=== PATIENT | female | born 1990 | race Caucasian/White ===

== ENCOUNTER → 2016-08-22 | Outpatient (CLI) | payer BC ==
[2016-08-22 08:10] LABS: Albumin 4.1 g/dL (3.4-5.0); BUN/Creatinine Ratio 21.5; Calcium 8.8 mg/dL (8.5-10.1); Total Protein 7.7 g/dL (6.4-8.2)
== END | disposition home or self-care (01) ==
LOC: LAB 07:17
PROVIDERS: ATTEND Physician Assistant
DX: E78.4 Other hyperlipidemia (principal)
CPT/HCPCS: 36415; 80053; 80061

== ENCOUNTER → 2017-09-11 | Outpatient (CLI) | payer BC | END | disposition home or self-care (01) | LOC: LAB 10:00 | PROVIDERS: ATTEND Physician Assistant | DX: D23.9 Other benign neoplasm of skin, unspecified (principal); E78.4 Other hyperlipidemia ==

== ENCOUNTER → 2017-12-12 | Outpatient (CLI) | payer BC ==
[2017-12-12 09:11] LABS: Basophils # (auto) 0 uL; Basophils % (auto) 0.7 % (0.0-2.0); Eosinophils # (auto) 0 uL; Eosinophils % (auto) 0.2 % (0.0-7.0); Hematocrit 42.2 % (36.0-46.0); Hemoglobin 14.5 g/dL (12.2-16.2); Lymphocytes # (auto) 1.2 uL; Lymphocytes % (auto) 20.1 % (10.0-50.0); Mean Corpuscular Hemoglobin 31.9 pg (28.0-32.0); Mean Corpuscular Hgb Conc. 34.3 g/dL (32.0-36.0); Mean Corpuscular Volume 92.9 fL (80.0-100.0); Monocytes # (auto) 0.3 uL; Monocytes % (auto) 5.5 % (0.0-12.0); Neutrophils # (auto) 4.5 uL; Neutrophils % (auto) 73.5 % (37.0-80.0); Nucleated Red Blood Cells % 0.1 %; Platelet Count (auto) 329 10^3/uL (140-450); Red Blood Cells 4.55 10^6/uL (4.0-5.20); Red Cell Distribution Width 12.8 % (11.8-14.3); White Blood Cell 6.1 10^3/uL (4.4-10.8)
[2017-12-12 09:44] LABS: Albumin 4.4 g/dL (3.4-5.0); BUN/Creatinine Ratio 20.2; Bilirubin, Total 1.1 mg/dL (0.2-1.0); Calcium 9.6 mg/dL (8.5-10.1); Total Protein 8.4 g/dL (6.4-8.2)
== END | disposition home or self-care (01) ==
LOC: LAB 08:07
PROVIDERS: ATTEND Physician Assistant
DX: E78.4 Other hyperlipidemia (principal); G44.209 Tension-type headache, unspecified, not intractable; N94.6 Dysmenorrhea, unspecified
CPT/HCPCS: 36415; 80053; 80061; 85025

== ENCOUNTER → 2019-12-27 | Outpatient (CLI) | payer BC ==
[2019-12-27 08:44] LABS: Basophils # (auto) 0 10 ^3/uL (0-0.2); Eosinophils # (auto) 0.1 10 ^3/uL (0-0.8); Monocytes # (auto) 0.3 10 ^3/uL (0-1.3); Neutrophils # (auto) 2.6 10 ^3/uL (1.6-8.6)
[2019-12-27 08:47] LABS: Basophils % (auto) 0.7 % (0.0-2.0); Eosinophils % (auto) 1.5 % (0.0-7.0); Hematocrit 41.8 % (36.0-46.0); Hemoglobin 14.1 g/dL (12.2-16.2); Lymphocytes # (auto) 1.5 10 ^3/uL (0.4-5.4); Lymphocytes % (auto) 33.1 % (10.0-50.0); Mean Corpuscular Hgb Conc. 33.8 g/dL (32.0-36.0); Mean Corpuscular Volume 91.7 fL (80.0-100.0); Monocytes % (auto) 7.5 % (0.0-12.0); Neutrophils % (auto) 57.2 % (37.0-80.0); Nucleated Red Blood Cells % 0.2 %; Platelet Count (auto) 329 10^3/uL (140-450); Red Blood Cells 4.56 10^6/uL (4.0-5.20); White Blood Cell 4.6 10^3/uL (4.4-10.8)
[2019-12-27 09:17] LABS: Albumin 4.1 g/dL (3.4-5.0); Calcium 9.2 mg/dL (8.5-10.1); Potassium 3.7 mmol/L (3.5-5.1)
[2019-12-27 09:22] LABS: BUN/Creatinine Ratio 20.5; Bilirubin, Total 0.6 mg/dL (0.2-1.0); Total Protein 7.8 g/dL (6.4-8.2)
== END | disposition home or self-care (01) ==
LOC: LAB 08:05
PROVIDERS: ATTEND Physician Assistant
DX: E78.49 Other hyperlipidemia (principal); N94.6 Dysmenorrhea, unspecified; Z30.41 Encounter for surveillance of contraceptive pills
CPT/HCPCS: 36415; 80053; 80061; 85025

== ENCOUNTER → 2020-05-22 | Outpatient (CLI) | payer BC ==
[2020-05-22 09:05] LABS: Cholesterol 187 mg/dL (< 200)
[2020-05-22 09:08] LABS: HDL Cholesterol 68 mg/dL (40-59); LDL Cholesterol 106 mg/dL (< 100); Triglycerides 56 mg/dL (< 150)
== END | disposition home or self-care (01) ==
LOC: LAB 08:07
PROVIDERS: ATTEND Physician Assistant
DX: E78.49 Other hyperlipidemia (principal)
CPT/HCPCS: 36415; 80061

== ENCOUNTER → 2021-12-29 | Outpatient (CLI) | payer BC ==
[2021-12-29 07:32] LABS: Basophils # (auto) 0 10 ^3/uL (0-0.2); Basophils % (auto) 0.7 % (0.0-2.0); Eosinophils # (auto) 0 10 ^3/uL (0-0.8); Eosinophils % (auto) 1.2 % (0.0-7.0); Hematocrit 41.2 % (36.0-46.0); Hemoglobin 13.7 g/dL (12.2-16.2); Lymphocytes # (auto) 1.1 10 ^3/uL (0.4-5.4); Lymphocytes % (auto) 29.9 % (10.0-50.0); Mean Corpuscular Hemoglobin 30.4 pg (28.0-32.0); Mean Corpuscular Hgb Conc. 33.3 g/dL (32.0-36.0); Mean Corpuscular Volume 91.2 fL (80.0-100.0); Monocytes # (auto) 0.3 10 ^3/uL (0-1.3); Neutrophils # (auto) 2.3 10 ^3/uL (1.6-8.6); Neutrophils % (auto) 60.2 % (37.0-80.0); Red Blood Cells 4.52 10^6/uL (4.0-5.20); White Blood Cell 3.8 10^3/uL (4.4-10.8)
[2021-12-29 08:11] LABS: Albumin 3.9 g/dL (3.4-5.0); Calcium 9.1 mg/dL (8.5-10.1); Potassium 4.2 mmol/L (3.5-5.1)
[2021-12-29 08:17] LABS: BUN/Creatinine Ratio 16.5; Bilirubin, Total 0.9 mg/dL (0.2-1.0); Total Protein 7.3 g/dL (6.4-8.2)
== END | disposition home or self-care (01) ==
LOC: LAB 07:09
PROVIDERS: ATTEND Nurse Practitioner Family
DX: Z00.00 Encounter for general adult medical examination without abnormal findings (principal); E78.49 Other hyperlipidemia; G25.81 Restless legs syndrome
CPT/HCPCS: 36415; 80053; 80061; 82306; 82607; 85025

== ENCOUNTER → 2022-12-01 | Outpatient (CLI) | payer BC ==
[2022-12-01 07:34] LABS: Basophils # (auto) 0 10 ^3/uL (0-0.2); Basophils % (auto) 0.9 % (0.0-2.0); Eosinophils # (auto) 0.1 10 ^3/uL (0-0.8); Eosinophils % (auto) 2.4 % (0.0-7.0); Hematocrit 42.2 % (36.0-46.0); Hemoglobin 14.3 g/dL (12.2-16.2); Lymphocytes # (auto) 1.6 10 ^3/uL (0.4-5.4); Lymphocytes % (auto) 37.5 % (10.0-50.0); Mean Corpuscular Hemoglobin 31.3 pg (28.0-32.0); Mean Corpuscular Hgb Conc. 33.9 g/dL (32.0-36.0); Mean Corpuscular Volume 92.3 fL (80.0-100.0); Monocytes # (auto) 0.4 10 ^3/uL (0-1.3); Monocytes % (auto) 9.4 % (0.0-12.0); Neutrophils # (auto) 2.1 10 ^3/uL (1.6-8.6); Neutrophils % (auto) 49.8 % (37.0-80.0); Red Blood Cells 4.57 10^6/uL (4.0-5.20); Red Cell Distribution Width 13.2 % (11.8-14.3); White Blood Cell 4.2 10^3/uL (4.4-10.8)
[2022-12-01 08:23] LABS: Alanine Aminotransferase 14 U/L (7-40); Alkaline Phosphatase 51 U/L (46-116); Anion Gap 9.8 (5-15); Blood Urea Nitrogen 10 mg/dL (9-23); Calcium 9.9 mg/dL (8.5-10.1); Carbon Dioxide 23.2 mmol/L (20-30); Chloride 105 mmol/L (98-107); Glucose 103 mg/dL (74-106); Potassium 4.1 mmol/L (3.5-5.1); Sodium 138 mmol/L (136-145); Triglycerides 61 mg/dL (< 150)
[2022-12-01 08:24] LABS: Albumin 4.8 g/dL (3.2-4.8); LDL Cholesterol 121 mg/dL (< 100)
[2022-12-01 08:25] LABS: Aspartate Aminotransferase 13 U/L (13-40); Bilirubin, Total 1.2 mg/dL (0.2-1.0); Cholesterol 189 mg/dL (< 200); HDL Cholesterol 59 mg/dL (40-59); Total Protein 7.7 g/dL (5.7-8.2)
== END | disposition home or self-care (01) ==
LOC: LAB 07:04
PROVIDERS: ATTEND Nurse Practitioner Family
DX: E55.9 Vitamin D deficiency, unspecified (principal); E78.49 Other hyperlipidemia
CPT/HCPCS: 36415; 80053; 80061; 82306; 85025

== ENCOUNTER → 2023-06-18 | Outpatient (CLI) | payer BC ==
[2023-06-18 06:49] LABS: Urine Bacteria NONE SEEN /hpf (None Seen); Urine Blood TRACE /uL (Negative); Urine Clarity Clear (Clear); Urine Protein, UAD Negative (Negative); Urine Urobilinogen Normal (Negative); Urine WBC 5 /hpf (0 - 5); Urine pH 5.5 (5.0-8.0)
[2023-06-18 06:51] LABS: Urine Color Straw (Yellow)
[2023-06-18 06:57] LABS: Basophils # (auto) 0 10 ^3/uL (0-0.2); Basophils % (auto) 0.7 % (0.0-2.0); Eosinophils # (auto) 0.2 10 ^3/uL (0-0.8); Eosinophils % (auto) 2.7 % (0.0-7.0); Hematocrit 43.4 % (36.0-46.0); Hemoglobin 14.4 g/dL (12.2-16.2); Lymphocytes # (auto) 2.4 10 ^3/uL (0.4-5.4); Mean Corpuscular Hgb Conc. 33.2 g/dL (32.0-36.0); Mean Corpuscular Volume 93.3 fL (80.0-100.0); Monocytes # (auto) 0.4 10 ^3/uL (0-1.3); Monocytes % (auto) 7.3 % (0.0-12.0); Neutrophils % (auto) 49.3 % (37.0-80.0); Red Blood Cells 4.65 10^6/uL (4.0-5.20); Red Cell Distribution Width 12.9 % (11.8-14.3)
[2023-06-18 08:04] LABS: Alanine Aminotransferase 15 U/L (7-40); Albumin 4.8 g/dL (3.2-4.8); Alkaline Phosphatase 52 U/L (46-116); Anion Gap 9 (5-15); Aspartate Aminotransferase 13 U/L (13-40); BUN/Creatinine Ratio 18.1 (10.0-20.0); Blood Urea Nitrogen 15 mg/dL (9-23); Calcium 9.9 mg/dL (8.5-10.1); Carbon Dioxide 24 mmol/L (20-30); Chloride 105 mmol/L (98-107); Glucose 97 mg/dL (74-106); LDL Cholesterol 91 mg/dL (< 100); Sodium 138 mmol/L (136-145); Triglycerides 63 mg/dL (< 150)
[2023-06-18 08:05] LABS: Bilirubin, Total 0.9 mg/dL (0.2-1.0); Cholesterol 167 mg/dL (< 200); HDL Cholesterol 64 mg/dL (40-59); Total Protein 7.1 g/dL (5.7-8.2)
== END | disposition home or self-care (01) ==
LOC: LAB 06:17
PROVIDERS: ATTEND Nurse Practitioner Family
DX: E78.5 Hyperlipidemia, unspecified (principal)
CPT/HCPCS: 36415; 80053; 80061; 81001; 84439; 84443; 85025

== ENCOUNTER → 2023-12-17 | Outpatient (CLI) | payer BC ==
[2023-12-17 06:38] LABS: Triglycerides 114 mg/dL (< 150)
[2023-12-17 06:39] LABS: Albumin 4.8 g/dL (3.2-4.8); Alkaline Phosphatase 45 U/L (46-116); Anion Gap 9 (5-15); Aspartate Aminotransferase < 8 U/L (13-40); BUN/Creatinine Ratio 17.1 (10.0-20.0); Blood Urea Nitrogen 13 mg/dL (9-23); Carbon Dioxide 23 mmol/L (20-30); Chloride 107 mmol/L (98-107); Cholesterol 223 mg/dL (< 200); Glucose 95 mg/dL (74-106); HDL Cholesterol 60 mg/dL (40-59); LDL Cholesterol 141 mg/dL (< 100); Sodium 139 mmol/L (136-145); Total Protein 7.4 g/dL (5.7-8.2)
[2023-12-17 06:41] LABS: Basophils # (auto) 0 10 ^3/uL (0-0.2); Basophils % (auto) 0.6 % (0.0-2.0); Eosinophils # (auto) 0.1 10 ^3/uL (0-0.8); Eosinophils % (auto) 1.5 % (0.0-7.0); Hematocrit 41.2 % (36.0-46.0); Hemoglobin 14.4 g/dL (12.2-16.2); Lymphocytes # (auto) 2.3 10 ^3/uL (0.4-5.4); Lymphocytes % (auto) 37.8 % (10.0-50.0); Mean Corpuscular Hemoglobin 32.4 pg (28.0-32.0); Mean Corpuscular Hgb Conc. 34.8 g/dL (32.0-36.0); Mean Corpuscular Volume 93.1 fL (80.0-100.0); Monocytes # (auto) 0.4 10 ^3/uL (0-1.3); Monocytes % (auto) 7.4 % (0.0-12.0); Neutrophils # (auto) 3.2 10 ^3/uL (1.6-8.6); Neutrophils % (auto) 52.7 % (37.0-80.0); Nucleated Red Blood Cells % 0.1 %; Platelet Count (auto) 318 10^3/uL (140-450); Red Blood Cells 4.43 10^6/uL (4.0-5.20); Red Cell Distribution Width 12.8 % (11.8-14.3)
[2023-12-17 06:46] LABS: Alanine Aminotransferase < 9 U/L (7-40)
== END | disposition home or self-care (01) ==
LOC: LAB 05:57
PROVIDERS: ATTEND Nurse Practitioner Family
DX: E78.5 Hyperlipidemia, unspecified (principal)
CPT/HCPCS: 36415; 80053; 80061; 85025

== ENCOUNTER 2024-01-31 07:18 | Day surgery (SDC) | payer BC ==
--- NOTE | 2024-01-28 14:28 | DVHHP ---
ADMIT DATE: 01/31/2024 CHIEF COMPLAINT: Chronic pelvic pain. HISTORY OF PRESENT ILLNESS: This is a 33-year-old female with last menstrual period 01/23/2024. The patient is nulligravid. She has never been sexually active. She presents with possible history of endometriosis and chronic pelvic pain. This has been treated with oral contraceptive pills and it has helped with her pelvic pain. She is seen for a mass that was found on CT scan and ultrasound of her left ovary. Imaging shows a left adnexal mass, complex 8.8 cm possible endometrioma. The patient also has a need for a Pap smear as she declined a pelvic exam and Pap smear in the office due to anxiety. She has never had a Pap smear. PAST MEDICAL HISTORY: Pelvic pain, dysmenorrhea, hyperlipidemia, anxiety. MEDICATIONS: She takes atorvastatin 10 mg daily, Vienva 0.1 mg/0.02 mg tablets once a day. ALLERGIES: She has no known drug allergies. PAST SURGICAL HISTORY: Tonsillectomy and adenoidectomy. FAMILY HISTORY: Negative and noncontributory. REVIEW OF SYSTEMS: Negative as otherwise stated in the history of present illness. PHYSICAL EXAMINATION: VITAL SIGNS: She is 5 foot 2 inches tall, weighs 150 pounds, blood pressure 124/72. GENERAL: She is pleasant, alert, in no acute distress. HEENT: Normocephalic, atraumatic. Extraocular muscles intact. NECK: Supple, without any palpable thyromegaly. CHEST: Shows normal heart and lung sounds. ABDOMEN: Soft, nontender with no palpable masses. PELVIC: Deferred to the operating room. ASSESSMENT: * Chronic pelvic pain, suspected endometriosis * Left adnexal mass, Possible 8-9 cm ovarian endometrioma. * Need for Pap smear screening in the operating room, declined exam in the office. PLAN: The patient will be admitted for same day surgery. She has consented for pelvic exam under anesthesia, Pap smear and HPV testing. Operative laparoscopy with left ovarian cystectomy versus left salpingo-oophorectomy, possible laparotomy. The risks, benefits and alternatives to procedure were discussed with the patient and informed consent was obtained. She understands the risks of scar, pain, bleeding, infection, possible injury to bowel, bladder, adjacent organs. She also understands that endometriosis is a chronic condition that will likely require continued treatment and possible reoperation in the future. DO DAMOIN Parikh/SARAHI TID: [id number] RECEIPT: [id number] [facility]
[2024-01-28 15:09] LABS: Urine Bacteria None Seen /hpf (None Seen)
[2024-01-28 15:26] LABS: Basophils # (auto) 0 10 ^3/uL (0-0.2); Basophils % (auto) 0.6 % (0.0-2.0); Eosinophils # (auto) 0 10 ^3/uL (0-0.8); Eosinophils % (auto) 0.5 % (0.0-7.0); Hemoglobin 14.3 g/dL (12.2-16.2); Lymphocytes # (auto) 1.3 10 ^3/uL (0.4-5.4); Lymphocytes % (auto) 21.2 % (10.0-50.0); Mean Corpuscular Hemoglobin 31.8 pg (28.0-32.0); Mean Corpuscular Volume 93.4 fL (80.0-100.0); Monocytes # (auto) 0.3 10 ^3/uL (0-1.3); Monocytes % (auto) 5.5 % (0.0-12.0); Neutrophils # (auto) 4.3 10 ^3/uL (1.6-8.6); Neutrophils % (auto) 72.2 % (37.0-80.0); Platelet Count (auto) 347 10^3/uL (140-450); Red Blood Cells 4.49 10^6/uL (4.0-5.20); Red Cell Distribution Width 12.9 % (11.8-14.3)
[2024-01-28 15:42] LABS: Urine Blood Negative /uL (Negative); Urine Clarity Clear (Clear); Urine Color Light-Yellow (Yellow); Urine Protein, UAD Negative (Negative); Urine Urobilinogen Normal (Negative); Urine WBC 9 /hpf (0 - 5)
[2024-01-28 15:44] LABS: INR 0.97 (0.9-1.15); Prothrombin Time 10.3 sec (9.3-11.8)
[2024-01-28 16:35] LABS: Alanine Aminotransferase 18 U/L (7-40); Alkaline Phosphatase 49 U/L (46-116); Anion Gap 8 (5-15); Aspartate Aminotransferase 10 U/L (13-40); BUN/Creatinine Ratio 12.5 (10.0-20.0); Blood Urea Nitrogen 9 mg/dL (9-23); Calcium 10.5 mg/dL (8.7-10.4); Carbon Dioxide 24 mmol/L (20-31); Chloride 107 mmol/L (98-107); Glucose 81 mg/dL (74-106); Potassium 3.8 mmol/L (3.5-5.1); Sodium 139 mmol/L (136-145)
[2024-01-28 16:36] LABS: Albumin 4.9 g/dL (3.2-4.8)
[2024-01-28 16:37] LABS: Bilirubin, Total 1.3 mg/dL (0.2-1.0); Total Protein 7.7 g/dL (5.7-8.2)
[~2024-01-31] VITALS: Ht 157.5 cm; Wt 65.8 kg
[~2024-01-31 07:18] MED LIST: LEVO-185 PO
[2024-01-31] MEDS ORDERED: SUCCINYLCHOLINE CHLORIDE 20 MG/ML 10ML VIAL IV ONE (07:19)
[2024-01-31] MEDS ORDERED: LIDOCAINE W/ EPINEPHRINE 1% 20ML VIAL ONE (08:18)
[2024-01-31] MEDS ORDERED: ceFAZolin 2 GM/D5W100ml 100 ML IV ONE (08:37)
[2024-01-31] MEDS ORDERED: MORPHINE SULFATE INJ 2 MG/ml SYRG IV PRN (08:45)
[2024-01-31] MEDS ORDERED: HYDROmorphone HCL 2 MG/ML VL/or syr IV PRN ×2 (08:45)
[2024-01-31] MEDS ORDERED: KETOROLAC TROMETH 30 MG/ML 1ML VIAL IV ONE (08:45)
[2024-01-31] MEDS ORDERED: fentaNYL CITRATE 100 MCG/2 ML VL ONE (09:01)
[2024-01-31] MEDS ORDERED: NEOSTIGMINE 1 MG/ML INJ (10mg/10ML VIAL) ONE (09:01)
[2024-01-31] MEDS ORDERED: ROCURONIUM 10MG/ML 10ML VIAL IV ONE (09:01)
[2024-01-31] MEDS ORDERED: KETAMINE 50mg/ML 1ml syringe ONE (09:01)
[2024-01-31] MEDS ORDERED: MEPERIDINE HCL (50 MG/ML) 1 ML VIAL ONE (09:01)
[2024-01-31] MEDS ORDERED: LIDOCAINE HCL 2% TOP JELLY 5ML TOP ONE (09:01)
[2024-01-31] MEDS ORDERED: GLYCOPYRROLATE 0.2 MG/ML 1ML VIAL ONE (09:01)
[2024-01-31] MEDS ORDERED: ONDANSETRON HCL 4 MG/2 ML VIAL ONE (09:01)
[2024-01-31] MEDS ORDERED: PROPOFOL 10 MG/ML 20 ML IV ONE (09:01)
[2024-01-31] MEDS ORDERED: SODIUM CHLORIDE LOCK 10 ML ONE (09:01)
[2024-01-31] MEDS ORDERED: DexAMETHasone SOD PHOS 10MG/1ML VIAL INJ ONE (09:01)
[2024-01-31] MEDS ORDERED: MIDAZOLAM HCL 2MG/2ML 2ml VIAL (1mg/ml) ONE (09:01)
[2024-01-31] MEDS ORDERED: HYDR-4902 PO (09:19)
[2024-01-31] MEDS ORDERED: IBUP-1455 PO (09:19)
[2024-01-31 10:44] VITALS: TEMP 97.3; O2SAT 100
[2024-01-31] MEDS: LIDOCAINE 1% INJ PF 5ML AMP ONE (10:56)
--- NOTE | 2024-01-31 11:33 | DVHOP ---
DATE OF SURGERY: 01/31/2024 PREOPERATIVE DIAGNOSES: * Chronic pelvic pain. * Endometriosis. * Left persistent ovarian neoplasm 9 cm. * Need for Cervical Cancer screening FINAL DIAGNOSES: * Chronic pelvic pain. * Endometriosis. * Left persistent ovarian neoplasm 9 cm. * Need for Cervical Cancer screening PROCEDURE PERFORMED: * Pelvic exam under anesthesia. * Pap smear and HPV testing. * Operative laparoscopy with left salpingo-oophorectomy. * Peritoneal biopsy. SURGEON: Raheem Hidalgo DO BIOLOGICAL TECHNICIAN: equip tech. TYPE OF ANESTHESIA: General endotracheal. ANESTHESIOLOGIST: Dr. Yoo. INDICATIONS FOR PROCEDURE: The patient is a 33-year-old , nuligravid female. She has chronic pelvic pain and presumed endometriosis. The patient has never had a Pap smear and has aversion to obtaining a Pap smear in the office due to anxiety.; She is requesting a Pap and pelvic exam under anesthesia. Patient has endometriosis by history with chronic pelvic pain. She has a persistent mass that by imaging is suggestive of endometrioma. She does not desire any children in the future. FINDINGS: Uterus, normal size uterine cavity sounds to 8 cm. Normal cervix, normal vagina, no lesions. Pap smear and HPV testing sample obtained. On laparoscopy, the patient had a normal-sized uterus. She had several small (less than 1 cm) subserosal myomas, She had a normal right fallopian tube and ovary. She had a large mass in the left ovary that was approximately 9 cm. Threre were purplish pigmented lesions on the surface of the ovary suspicious for endometriosis. A left salpingo-oophorectomy performed, no evidence of malignancy. There was endometriosis in the posterior cul-de-sac. The patient had powder burn and purple blotch lesions in the cul-de-sac and over the right uterosacral ligament. The patient also had an endometriosis lesion over the right pelvic sidewall peritoneum surface which was biopsied. TECHNICAL PROCEDURE: After informed consent was obtained, the patient was taken to the operating room where she underwent smooth induction with general anesthesia. The patient was placed in dorsal lithotomy position in Walter stirrups. The vagina, perineum, and abdomen were thoroughly prepped and the patient sterilely draped in the usual fashion. A pelvic exam was then performed under anesthesia with the above noted findings. A Pap smear was performed in usual fashion with a spatula and brush. The specimen was submitted to pathology. Next, a transurethral Almeida was placed and the balloon inflated. Next, a single tooth tenaculum was placed at the cervix at 12 o'clock. The uterine cavity sounded to 8 cm. A HUMI uterine manipulator was placed transcervically and the balloon inflated. Next, all instrumentation was removed from the patient's vagina. Attention was then placed to the abdomen where the umbilicus was tented with a Alber clamp. The umbilical stump was incised 5 mm to allow entry of the Veress needle. The Veress needle was placed intraperitoneally. Intraperitoneal placement was confirmed with the hanging water drop test. Carbon dioxide gas was then infused and pneumoperitoneum obtained. A 5 mm Optiview trocar was placed through the umbilical incision and intraperitoneal placement was confirmed directly with the laparoscope. Survey of the abdomen and pelvis revealed the above noted findings. Next, an 8 mm port was placed to the patient's right of midline and a 12 mm port was placed into the patient's left of midline under direct visualization. Next, we surveyed the abdomen and pelvis. The left ovary was completely replaced by a neoplasm. Therefore, decision was made to perform a laparoscopic left salpingo-oophorectomy. The infundibulopelvic ligament was identified. It was desiccated with the LigaSure device in 3 separate spots. Then, the infundibulopelvic ligament was divided with good hemostasis noted. The dissection was carried anteriorly with the LigaSure device and the uteroovarian and fallopian tube pedicles were taken with the LigaSure device. The ovary and tube were then placed in an EndoCatch bag. This mass was then decompressed and serous fluid was drained in the bag and suctioned with no spillage in the abdomen. Once the ovary was decompressed, it was brought out through the 10-12 mm port and the specimen removed and submitted to pathology. Next, we saw multiple endometriotic lesions. Photos were obtained. There was an approximately 0.5 cm lesion over the right pelvic sidewall peritoneum. The peritoneum was grasped with tissue forceps and incised with cold scissors. The specimen was submitted as peritoneal biopsy. There was no bleeding that was noted. The abdomen was then thoroughly irrigated. Hemostasis was confirmed. At this point, the 10-12 port was closed with 2 sutures of 0 Vicryl using the Sergey-Lopez device with good tissue approximation noted. The 8 mm port was not closed. The 5 mm port at the umbilicus was not closed. The carbon dioxide gas was released and the trocars were removed under direct visualization. Following this, the skin incisions, all 3 were injected with 1% lidocaine with epinephrine, approximately 20 mL of lidocaine with epinephrine was used to cross the three abdominal incisions. Next, I proceeded to close the skin incisions in subcuticular fashion using 3-0 Monocryl. A thin layer of Dermabond was then placed over the skin incisions. The transurethral Almeida and the uterine manipulator were removed. There was no bleeding from the cervix noted. The patient was then taken out of lithotomy position, awakened, and taken to recovery room in stable condition. INTRAOPERATIVE COMPLICATIONS: None. ESTIMATED BLOOD LOSS: Less than 15 mL. POSTOPERATIVE CONDITION: Stable. SPECIMENS: * Pap smear and HPV testing. * Left tube and ovary. * Peritoneal biopsy. MEDICATIONS: The patient received 2 g of Ancef prior to skin incision. DO MARI Parikh TID: [id number] RECEIPT: [id number] [facility]
[2024-01-31 11:59] VITALS: BP 118/49; PULSE 97; RESP 15; O2SAT 100
[2024-01-31] MEDS: METOCLOPRAMIDE HCL 5MG/ml INJ 2ml VIAL IV ONE (12:11)
== END 2024-01-31 12:34 | disposition home or self-care (01) ==
LOC: SUR 07:18
PROVIDERS: ATTEND Obstetrics & Gynecology
DX: N80.9 Endometriosis, unspecified (principal); D27.1 Benign neoplasm of left ovary; R10.2 Pelvic and perineal pain; E78.5 Hyperlipidemia, unspecified; G89.29 Other chronic pain; F41.9 Anxiety disorder, unspecified; Z79.899 Other long term (current) drug therapy; Z90.89 Acquired absence of other organs
CPT/HCPCS: 36415; 49321; 58661; 80053; 81001; 81025; 84702; 85025; 85610; 85730; 86850; 86900; 86901; 88307; J0330; J1100; J2175; J2250; J2405; J2704; J2765; J3010

== ENCOUNTER → 2024-06-11 | Outpatient (CLI) | payer BC ==
[~2024-06-11] MED LIST changes: +HYDR-4902 PO; +IBUP-1455 PO
[2024-06-11 06:35] LABS: Alanine Aminotransferase 10 U/L (7-40); Alkaline Phosphatase 48 U/L (46-116); Anion Gap 8 (5-15); BUN/Creatinine Ratio 16.3 (10.0-20.0); Blood Urea Nitrogen 14 mg/dL (9-23); Carbon Dioxide 23 mmol/L (20-31); Chloride 107 mmol/L (98-107); Glucose 95 mg/dL (74-106); Potassium 3.7 mmol/L (3.5-5.1); Sodium 138 mmol/L (136-145); Total Protein 7.5 g/dL (5.7-8.2); Triglycerides 75 mg/dL (< 150)
[2024-06-11 06:36] LABS: HDL Cholesterol 58 mg/dL (40-59)
[2024-06-11 06:39] LABS: Albumin 4.9 g/dL (3.2-4.8); Aspartate Aminotransferase 10 U/L (13-40); Cholesterol 215 mg/dL (< 200); LDL Cholesterol 148 mg/dL (< 100)
[2024-06-11 07:15] LABS: Basophils # (auto) 0 10 ^3/uL (0-0.2); Basophils % (auto) 0.8 % (0.0-2.0); Eosinophils # (auto) 0.1 10 ^3/uL (0-0.8); Eosinophils % (auto) 2.6 % (0.0-7.0); Hematocrit 41.5 % (36.0-46.0); Hemoglobin 14.5 g/dL (12.2-16.2); Lymphocytes # (auto) 2.2 10 ^3/uL (0.4-5.4); Lymphocytes % (auto) 45.6 % (10.0-50.0); Mean Corpuscular Hemoglobin 32.7 pg (28.0-32.0); Mean Corpuscular Hgb Conc. 34.9 g/dL (32.0-36.0); Mean Corpuscular Volume 93.6 fL (80.0-100.0); Monocytes # (auto) 0.4 10 ^3/uL (0-1.3); Neutrophils # (auto) 2.1 10 ^3/uL (1.6-8.6); Nucleated Red Blood Cells % 0.1 %; Platelet Count (auto) 300 10^3/uL (140-450); Red Blood Cells 4.43 10^6/uL (4.0-5.20); White Blood Cell 4.8 10^3/uL (4.4-10.8)
== END | disposition home or self-care (01) ==
LOC: LAB 06:01
PROVIDERS: ATTEND Nurse Practitioner Family
DX: E78.5 Hyperlipidemia, unspecified (principal)
CPT/HCPCS: 36415; 80053; 80061; 85025

== ENCOUNTER 2024-12-12 06:06 | Outpatient (CLI) | payer BC ==
[2024-12-12 06:53] LABS: Triglycerides 92 mg/dL (< 150)
[2024-12-12 06:59] LABS: Cholesterol 230 mg/dL (< 200); HDL Cholesterol 61 mg/dL (40-59)
== END 2024-12-12 17:00 | disposition home or self-care (01) ==
LOC: LAB 06:06
PROVIDERS: ATTEND Nurse Practitioner Family
DX: E78.5 Hyperlipidemia, unspecified (principal)
CPT/HCPCS: 36415; 80061